=== PATIENT | female | born 1980 | race African-American/Black ===

== ENCOUNTER 2025-02-01 05:49 | Inpatient (IN) | payer MEDICAID, OTHER ==
[~2025-02-01] VITALS: Ht 165.1 cm; Wt 63.5 kg
[~2025-02-01 05:49] MED LIST: FERR-63 PO; IBUP-779 PO; MESA800T PO; MULT-1116 PO; RABE-12 PO
[2025-02-01 05:57] VITALS: O2SAT 99
[2025-02-01] MEDS ORDERED: METHYLPREDNISOLONE 40MG/ML INJ IV ONE (06:45)
[2025-02-01] MEDS: METHYLPREDNISOLONE SOD SUCC 125MG/2ML (ACT-O-VIAL) IV NR (07:00)
[2025-02-01] MEDS: ONDANSETRON HCL 4MG/2ML INJ IV ONE (07:00)
[2025-02-01] MEDS: MORPHINE SULFATE 4 MG/ML INJ (FOR IV/IM USE) IV ONE ×2 (07:00→13:30)
[2025-02-01 07:15] LABS: BASOPHILS % 0.4 % (0.0-2.0); EOSINOPHILS % 0.4 % (0.0-5.0); HEMATOCRIT. 32.4 % (36.0-48.0); HEMOGLOBIN. 10.6 g/dL (12.0-16.0); LYMPHOCYTES % 8.4 % (20.0-50.0); MEAN PLATELET VOLUME 7.1 fl (7.4-10.4); MONOCYTES % 1.7 % (2.0-8.0); NEUTROPHILS % 89.1 % (40.0-76.0); PLATELET 359 x1000/uL (130-400); RED BLOOD CELL COUNT 3.85 mill/uL (4.2-5.4); RED CELL DISTRIBUTION WIDTH 19.2 % (11.6-14.6)
[2025-02-01 07:35] LABS: CREATININE 0.8 mg/dL (0.6-1.0); UREA NITROGEN BLOOD 8 mg/dL (9-23)
[2025-02-01] MEDS: METOCLOPRAMIDE HCL 10MG/2ML VIAL IV ONE ×2 (07:48→13:30)
[2025-02-01] MEDS: MAGNESIUM/ALUMINUM HYDROXIDE/SIMETHICONE 30ML UDC PO ONE (10:31)
[2025-02-01] MEDS ORDERED: HYDROCODONE/ACETAMINOPHEN 5/325MG TABLET PO PRN (14:30)
[2025-02-01] MEDS ORDERED: DOCUSATE SODIUM 100MG CAPSULE PO PRN (14:30)
[2025-02-01] MEDS ORDERED: IPRATROPIUM/ALBUTEROL 0.5-3(2.5)MG/3ML NEB HHN PRN (14:30)
[2025-02-01] MEDS ORDERED: CLONIDINE 0.1MG TABLET PO PRN (14:30)
[2025-02-01] MEDS ORDERED: ACETAMINOPHEN 325MG TABLET PO PRN ×2 (14:30)
[2025-02-01 14:50] LABS: HCG SCREEN NEGATIVE
[2025-02-01] MEDS: ONDANSETRON HCL 4MG/2ML INJ IV PRN (15:41)
[2025-02-01 16:00] VITALS: BP 111/48; PULSE 88; RESP 18; TEMP 36.6; O2SAT 96
[2025-02-01] MEDS: MESALAMINE 400 MG CAPSULE.DR PO SCH (17:00)
[2025-02-01 18:40] LABS: FOLIC ACID (FOLATE) SERUM > 20.00 ng/mL (>5.38)
[2025-02-01 18:42] LABS: VITAMIN B12 SERUM 853 pg/mL (211-911)
[2025-02-01 19:13] LABS: HEPATITIS A AB IGM NEGATIVE (Negative)
[2025-02-01 19:14] LABS: HEPATITIS B CORE AB IGM NEGATIVE (Negative); HEPATITIS C AB NON REACTIVE (Neg) (Negative)
[2025-02-01 20:00] VITALS: BP 116/74; PULSE 72; RESP 18; TEMP 37.1; O2SAT 99
[2025-02-01 20:18] VITALS: BP 111/48; PULSE 88; RESP 18; TEMP 36.6404
[2025-02-01] MEDS: HYDROMORPHONE HCL/PF 2MG/ML INJ IV PRN (21:26)
[2025-02-01] MEDS ORDERED: NALOXONE HCL 0.4MG/ML VIAL IV PRN (21:30)
[2025-02-02] VITALS: BP 127/65; PULSE 56; RESP 18; TEMP 36.7; O2SAT 99
[2025-02-02 01:44] LABS: *AMPHETAMINES SCREEN URINE NEGATIVE (NEGATIVE); *BARBITURATES SCREEN URINE NEGATIVE (NEGATIVE); *BENZODIAZEPINES SCREEN URINE NEGATIVE (NEGATIVE); *COCAINE SCREEN URINE NEGATIVE (NEGATIVE); CANNABINOID URINE SCREEN PRESUMPTIVE POSITIVE (NEGATIVE); METHADONE URINE SCREEN NEGATIVE (NEGATIVE); OPIATES URINE SCREEN PRESUMPTIVE POSITIVE (NEGATIVE); PHENCYCLIDINE URINE SCREEN NEGATIVE (NEGATIVE)
[2025-02-02 01:45] LABS: ECSTASY MDMA SCREEN URINE NEGATIVE (NEGATIVE)
[2025-02-02 04:00] VITALS: BP 103/49; PULSE 65; RESP 19; TEMP 36.3; O2SAT 98
[2025-02-02] MEDS: SODIUM CHLORIDE 0.9% 1,000 ML IV SCH (04:00)
[2025-02-02] MEDS: PANTOPRAZOLE 40MG DR TABLET PO SCH (06:22)
[2025-02-02 07:43] LABS: BASOPHILS % 0.1 % (0.0-2.0); EOSINOPHILS % 0.0 % (0.0-5.0); HEMATOCRIT. 28.5 % (36.0-48.0); HEMOGLOBIN. 9.3 g/dL (12.0-16.0); LYMPHOCYTES % 13.9 % (20.0-50.0); MEAN PLATELET VOLUME 7.5 fl (7.4-10.4); MONOCYTES % 8.4 % (2.0-8.0); NEUTROPHILS % 77.6 % (40.0-76.0); PLATELET 312 x1000/uL (130-400); RED BLOOD CELL COUNT 3.39 mill/uL (4.2-5.4); RED CELL DISTRIBUTION WIDTH 19.0 % (11.6-14.6)
[2025-02-02 07:56] LABS: CREATININE 0.7 mg/dL (0.6-1.0); UREA NITROGEN BLOOD 7 mg/dL (9-23)
[2025-02-02 07:57] LABS: PROTEIN TOTAL 5.9 g/dL (6.0-8.3)
[2025-02-02 07:58] LABS: ASPARTATE AMINOTRANSFERASE 17 IU/L (<34); BILIRUBIN TOTAL 0.4 mg/dL (0.1-1.0)
[2025-02-02 08:00] VITALS: BP 105/51; PULSE 60; RESP 19; TEMP 36.1; O2SAT 98
[2025-02-02 12:00] VITALS: BP 118/67; PULSE 74; RESP 18; TEMP 36.4; O2SAT 95
[2025-02-02 16:00] VITALS: BP 110/64; PULSE 77; RESP 18; TEMP 36.2; O2SAT 98
[2025-02-02] MEDS: POTASSIUM CHLORIDE 20MEQ TABLET SR PO NR (16:04)
[2025-02-02] MEDS: IRON SUCROSE COMPLEX 100 MG/5 ML ML IV SCH (16:20)
[2025-02-02 20:00] VITALS: BP 120/64; PULSE 65; RESP 17; TEMP 36.9; O2SAT 97
[2025-02-03] VITALS: PULSE 66; RESP 19; TEMP 36.5; O2SAT 99
[2025-02-03 04:00] VITALS: PULSE 66; RESP 19; TEMP 36.5; O2SAT 99
[2025-02-03 08:00] VITALS: BP 136/64; PULSE 61; RESP 18; TEMP 36.4; O2SAT 99
[2025-02-03 08:38] LABS: BASOPHILS % 0.2 % (0.0-2.0); EOSINOPHILS % 0.0 % (0.0-5.0); HEMATOCRIT. 28.6 % (36.0-48.0); HEMOGLOBIN. 9.5 g/dL (12.0-16.0); LYMPHOCYTES % 8.0 % (20.0-50.0); MEAN PLATELET VOLUME 7.7 fl (7.4-10.4); MONOCYTES % 3.1 % (2.0-8.0); NEUTROPHILS % 88.7 % (40.0-76.0); PLATELET 298 x1000/uL (130-400); RED BLOOD CELL COUNT 3.38 mill/uL (4.2-5.4); RED CELL DISTRIBUTION WIDTH 19.1 % (11.6-14.6)
[2025-02-03 09:03] LABS: CREATININE 0.7 mg/dL (0.6-1.0); UREA NITROGEN BLOOD 8 mg/dL (9-23)
[2025-02-03 09:27] LABS: ERYTHROCYTE SEDIMENTATION RATE 2.0 mm/hr (0-20)
[2025-02-03 12:00] VITALS: BP 133/73; PULSE 64; RESP 18; TEMP 36.4; O2SAT 99
[2025-02-03 16:00] VITALS: BP 133/67; PULSE 62; RESP 18; TEMP 36.6; O2SAT 96
[2025-02-03] MEDS: DICYCLOMINE HCL 10MG CAPSULE PO SCH (19:04)
[2025-02-03] MEDS: METOCLOPRAMIDE HCL 10MG/2ML VIAL IV SCH (19:05)
[2025-02-03 20:00] VITALS: BP 128/69; PULSE 68; RESP 17; TEMP 36.7; O2SAT 98
[2025-02-04] VITALS: BP 119/70; PULSE 64; RESP 17; TEMP 36.4; O2SAT 97
[2025-02-04 08:00] VITALS: BP 102/51; PULSE 63; RESP 16; TEMP 36.7; O2SAT 97
[2025-02-04 09:26] LABS: CREATININE 0.8 mg/dL (0.6-1.0)
[2025-02-04 09:27] LABS: UREA NITROGEN BLOOD 6 mg/dL (9-23)
[2025-02-04 09:29] LABS: PHOSPHORUS 3.0 mg/dL (2.5-4.9)
[2025-02-04 12:00] VITALS: BP 128/76; PULSE 64; RESP 16; TEMP 37.1; O2SAT 99
[2025-02-04] MEDS: POTASSIUM CHLORIDE 20MEQ TABLET SR PO SCH (12:44)
[2025-02-04 16:00] VITALS: BP 124/75; PULSE 60; RESP 16; O2SAT 96
[2025-02-04 20:00] VITALS: BP 118/78; PULSE 62; RESP 19; TEMP 36.3; O2SAT 98
[2025-02-04 22:01] LABS: BASOPHILS % 0.5 % (0.0-2.0); EOSINOPHILS % 0.1 % (0.0-5.0); HEMATOCRIT. 29.6 % (36.0-48.0); HEMOGLOBIN. 9.5 g/dL (12.0-16.0); LYMPHOCYTES % 35.6 % (20.0-50.0); MEAN PLATELET VOLUME 7.4 fl (7.4-10.4); MONOCYTES % 8.5 % (2.0-8.0); NEUTROPHILS % 55.3 % (40.0-76.0); PLATELET 333 x1000/uL (130-400); RED BLOOD CELL COUNT 3.52 mill/uL (4.2-5.4); RED CELL DISTRIBUTION WIDTH 19.2 % (11.6-14.6)
[2025-02-04 22:20] LABS: CREATININE 0.6 mg/dL (0.6-1.0)
[2025-02-04 22:21] LABS: C REACTIVE PROTEIN HIGH SENS 1.15 mg/l (<1.00); UREA NITROGEN BLOOD < 5 mg/dL (9-23)
[2025-02-05] VITALS: BP 120/71; PULSE 67; RESP 17; TEMP 36.6; O2SAT 99
[2025-02-05 04:00] VITALS: BP 118/75; PULSE 66; RESP 15; TEMP 36.4; O2SAT 97
[2025-02-05] MEDS: HYDROCODONE/ACETAMINOPHEN 10/325MG TABLET PO PRN (05:47)
[2025-02-05 09:10] LABS: CREATININE 0.7 mg/dL (0.6-1.0); UREA NITROGEN BLOOD < 5 mg/dL (9-23)
[2025-02-05] MEDS: ASCORBIC ACID 500 MG TABLET PO SCH (10:01)
[2025-02-05] MEDS: FERROUS SULFATE 325MG TABLET PO SCH (10:01)
[2025-02-05 12:00] VITALS: BP 120/75; PULSE 56; RESP 16; TEMP 36.4; O2SAT 99
[2025-02-05 13:10] LABS: SACCHAROMYCES CEREVISIAE IGG <20.0 Units (0.0-24.9); SACCHAROMYCES CEREVISIAE IGM <20.0 Units (0.0-24.9)
[2025-02-05 15:24] VITALS: BP 120/75; PULSE 56; RESP 18; TEMP 97.6
== END 2025-02-05 16:42 | disposition home or self-care (01) | DRG 245 ==
LOC: ER 05:49 → 6EST 13:39 → EDBEDREQ 13:41 → EDBEDREQTM 13:41 → EDBEDREQ 13:42
PROVIDERS: ADMIT Internal Medicine; ATTEND Internal Medicine
DX: K50.90 Crohn's disease, unspecified, without complications (principal); D50.9 Iron deficiency anemia, unspecified; F17.210 Nicotine dependence, cigarettes, uncomplicated; Z79.899 Other long term (current) drug therapy
CPT/HCPCS: 36415; 80048; 80053; 80305; 82270; 82607; 82728; 82746; 83540; 83550; 83735; 84100; 84703; 85025; 85044; 85651; 86141; 86256; 86671; 86705; 86709; 87045; 87340; 87449; 87493; 89055; 99285; J1171; J2270; J2405; J2765; J2919